=== PATIENT | female | born 1960 ===

== ENCOUNTER 2017-03-17 10:28 | Emergency (ER) | payer MEDICAID ==
[2017-03-17 10:37] VITALS: BP 148/76; PULSE 97; TEMP 98; O2SAT 98; BMI 25.0
--- NOTE | 2017-03-17 11:10 | ED PDOC ---
Upper Extremity Pain/Injury Time Seen by Provider: 03/17/17 10:45 Chief Complaint (Nursing): Upper Extremity Problem/Injury Chief Complaint (Provider): Upper Extremity problem/injury History Per: Patient History/Exam Limitations: no limitations Onset/Duration Of Symptoms: Days (x2 months) Additional Complaint(s): Shanita Booth, 56 year old female presents to the ED on 03/17/17 after experiencing numbness in her 1st three digits on her right hand. The patient reports injuring her right wrist in December and then attending physical therapy 3 times per week due to this injury. She denies any neck pain, elbow pain, or arm pain. The patient has a past medial history inclusive of Diabetes. Past Medical History Reviewed: Historical Data, Nursing Documentation, Vital Signs Vital Signs: Last Vital Signs Temp 98 F 03/17/17 10:36 Pulse 97 H 03/17/17 10:36 Resp BP 148/76 03/17/17 10:36 Pulse Ox 98 03/17/17 10:43 - Medical History PMH: Diabetes, HTN - Family History Family History: States: Unknown Family Hx - Home Medications Home Medications: Ambulatory Orders Medication Instructions Recorded Metformin HCl [Glucophage] 1 tab PO TID 11/03/15 Naproxen 500 mg PO BID PRN #20 tab 11/03/15 Olmesartan Medoxomil [Benicar] 1 tab PO DAILY 11/03/15 Acetaminophen 325 mg PO Q6 #20 tablet 05/28/16 Naproxen [Naprosyn] 500 mg PO BID PRN #20 tablet 03/17/17 - Allergies Allergies/Adverse Reactions: Allergies Allergy/AdvReac Type Severity Reaction Status Date / Time No Known Allergies Allergy Verified 11/03/15 19:36 Review of Systems ROS Statement: Except As Marked, All Systems Reviewed And Found Negative Musculoskeletal: Negative for: Neck Pain, Arm Pain (and no elbow pain ) Neurological: Positive for: Numbness (to 1st three digits on right hand ) Physical Exam - Reviewed Nursing Documentation Reviewed: Yes Vital Signs Reviewed: Yes - Physical Exam Appears: Positive for: Non-toxic, No Acute Distress Head Exam: Positive for: ATRAUMATIC, NORMOCEPHALIC Extremity: Positive for: Other (phalen and tinel) Neurologic/Psych: Positive for: Alert, Oriented (x3) - ECG O2 Sat by Pulse Oximetry: 98 (RA) Pulse Ox Interpretation: Normal Medical Decision Making Medical Decision Making: Initial Impression: Diagnosis is Carpal Tunnel Syndrome. Patient advised to wear wrist splint. Patient agreed to treatment plan. Scribe Attestation: Documented by Tamica Miramontes, acting as a scribe for Latosha Hendrickson MD. Provider Scribe Attestation: All medical record entries made by the Scribe were at my direction and personally dictated by me. I have reviewed the chart and agree that the record accurately reflects my personal performance of the history, physical exam, medical decision making, and the department course for this patient. I have also personally directed, reviewed, and agree with the discharge instructions and disposition. Disposition - Clinical Impression Clinical Impression: Carpal tunnel syndrome - Patient ED Disposition Is Patient to be Admitted: No Doctor Will See Patient In The: Office Counseled Patient/Family Regarding: Diagnosis, Need For Followup, Rx Given - Disposition Referrals: [facility] [Outside] [facility] [Outside] Disposition: Routine/Home Disposition Time: 11:00 Condition: STABLE Additional Instructions: Please wear the wrist splint as often as possible, even during sleep. Prescriptions: Naproxen [Naprosyn] 500 mg PO BID PRN #20 tablet PRN Reason: Pain, Moderate (4-7) Instructions: Carpal Tunnel Syndrome (ED) Forms: [employer] (Swazi) - POA Present On Arrival: None
== END 2017-03-17 11:42 | disposition home or self-care (01) ==
LOC: H.ER 10:28
DX: G56.01 Carpal tunnel syndrome, right upper limb (principal)

== ENCOUNTER 2017-08-13 18:09 | Emergency (ER) | payer MEDICAID ==
[2017-08-13 18:09] VITALS: BMI 25.0
[2017-08-13 18:18] VITALS: BP 143/73; PULSE 92; RESP 16; TEMP 98; O2SAT 98
--- NOTE | 2017-08-13 18:30 | ED PDOC ---
Upper Extremity Pain/Injury Time Seen by Provider: 08/13/17 18:18 Chief Complaint (Nursing): Upper Extremity Problem/Injury Chief Complaint (Provider): Upper Extremity Problem/Injury History Per: Patient History/Exam Limitations: no limitations Onset/Duration Of Symptoms: Days (x2) Current Symptoms Are (Timing): Still Present Additional Complaint(s): Shanita Booth is a 56 year old female, right-hand dominant with previous medical history of diabetes, who presents to the emergency department with worsening right wrist pain.. Patient sustained hand injury in December 2016 and diagnosed with carpal tunnel syndrome by a neurologist. PT has follow-up appointment on 08/28/17. She stated wearing a wrist brace at night and takes Ibuprofen daily with last dose at 0930 earlier today. PMD: Eber Grossman MD Past Medical History Reviewed: Historical Data, Nursing Documentation, Vital Signs Vital Signs: Last Vital Signs Temp 98.0 F 08/13/17 18:15 Pulse 92 H 08/13/17 18:15 Resp 16 08/13/17 18:15 BP 143/73 08/13/17 18:15 Pulse Ox 98 08/13/17 18:15 - Medical History PMH: Diabetes - Surgical History Surgical History: Denies: No Surg Hx Other surgeries: left large toe - Family History Family History: States: Unknown Family Hx - Living Arrangements Living Arrangements: With Family - Social History Current smoker - smoking cessation education provided: No Ex-Smoker (has not smoked in the last 12 months): No Alcohol: None Drugs: Denies - Home Medications Home Medications: Ambulatory Orders Medication Instructions Recorded Metformin HCl [Glucophage] 1 tab PO TID 11/03/15 Naproxen 500 mg PO BID PRN #20 tab 11/03/15 Olmesartan Medoxomil [Benicar] 1 tab PO DAILY 11/03/15 Acetaminophen 325 mg PO Q6 #20 tablet 05/28/16 Naproxen [Naprosyn] 500 mg PO BID PRN #20 tablet 03/17/17 traMADol [Ultram] 50 mg PO Q6H PRN #15 tab 08/13/17 - Allergies Allergies/Adverse Reactions: Allergies Allergy/AdvReac Type Severity Reaction Status Date / Time No Known Allergies Allergy Verified 11/03/15 19:36 Review of Systems ROS Statement: Except As Marked, All Systems Reviewed And Found Negative Musculoskeletal: Positive for: Other (Right wrist pain) Physical Exam - Reviewed Nursing Documentation Reviewed: Yes Vital Signs Reviewed: Yes - Physical Exam Appears: Positive for: Well, Non-toxic, No Acute Distress Head Exam: Positive for: ATRAUMATIC, NORMAL INSPECTION, NORMOCEPHALIC Skin: Positive for: Normal Color Eye Exam: Positive for: Normal appearance ENT: Positive for: Normal ENT Inspection Neck: Positive for: Normal Respiratory: Negative for: Accessory Muscle Use, Respiratory Distress Pulses-Radial (L): 2+ Pulses-Radial (R): 2+ Extremity: Positive for: Normal ROM, Other (Decreased field support representative strength due to pain ; (+) tinel, (+) phalen on right ). Negative for: Swelling Neurologic/Psych: Positive for: Alert (x3), Oriented - ECG O2 Sat by Pulse Oximetry: 98 (RA) Pulse Ox Interpretation: Normal Medical Decision Making Medical Decision Making: Initial Impression: Right hand pain Initial Plan: * Motrin 600mg PO * Ultram 50mg PO Scribe Attestation: Documented by Kari Ballard, acting as a scribe for Miguelina Sandoval MD. Provider Scribe Attestation: All medical record entries made by the Scribe were at my direction and personally dictated by me. I have reviewed the chart and agree that the record accurately reflects my personal performance of the history, physical exam, medical decision making, and the department course for this patient. I have also personally directed, reviewed, and agree with the discharge instructions and disposition. Disposition - Clinical Impression Clinical Impression: Carpal tunnel syndrome - Patient ED Disposition Is Patient to be Admitted: No Counseled Patient/Family Regarding: Diagnosis, Need For Followup, Rx Given - Disposition Referrals: [facility] [Outside] Disposition: Routine/Home Disposition Time: 18:42 Condition: GOOD Prescriptions: traMADol [Ultram] 50 mg PO Q6H PRN #15 tab PRN Reason: Pain Instructions: Carpal Tunnel Syndrome (ED) Forms: [employer] (Greek)
== END 2017-08-13 18:51 | disposition home or self-care (01) ==
LOC: H.ER 18:09
DX: G56.01 Carpal tunnel syndrome, right upper limb (principal)